=== PATIENT | male | born 1935 | race Caucasian/White ===

== ENCOUNTER → 2017-09-14 | Day surgery (SDC) | payer OTHER ==
[~2017-09-14] MED LIST: ALLOPURINOL300 M1 PO; PERCOCET 5-3251 EACH PO; VITAMIN D350000 UNIT PO; ZOFRAN4 M2 PO
--- NOTE | 2017-09-14 16:19 | Operative Report ---
Operative/Inv Procedure Report Surgery Date: 09/14/17 Name of Procedure: Port-A-Cath placement Pre-Operative Diagnosis: Colon cancer Post-Operative Diagnosis: Same Estimated Blood Loss: scant Surgeon/Dope Maintenance Worker: Shandra Cristobal MD Anesthesia: local monitored anesthesi Implants: Port-A-Cath (inserted in the chart) Complications: None Condition: Stable to recovery room Operative Indication: Patient is an 81-year-old man with colon cancer. Patient presents for a Port-A- Cath placement for chemotherapy. All risks benefits and alternatives explained to patient detail, and he expressed understanding and agreement to the same. Operative/Procedure Note Note: Patient was taken to the operating room and placed in supine position on the operating table. Both arms were tucked. Bilateral lower extremity SCDs were placed. Anesthesia was established by the anesthesia team. Bilateral neck, anterior chest wall, and shoulders were prepped and draped in the standard surgical fashion. Perioperative antibiotic was given. The timeout was carried out. The patient was placed in the Trendelenburg position. Topical analgesia was achieved with 10 mL of 1% lidocaine with epinephrine. The subclavian vein was punctured through subcutaneous stick. The guidewire was placed into the left subclavian vein and threaded to the superior vena cava easily. Its position was confirmed with fluoroscopy. Then a small pocket was created in the anterior left chest wall for the placement of the reservoir. [place] was secured in place with 2-0 PDS sutures. The sheath and dilator were placed under direct visualization with fluoroscopy scope the over the guidewire into the left subclavian vein. The guidewire and dilator were pulled out as a unit. The catheter was placed within their subclavian vein and advanced into the superior vena cava through the sheath. The sheath was pulled apart and removed. The keep of the catheter was positioned in the superior vena cava above the right atrium and its position was confirmed with fluoroscopy. The appropriate length of the catheter was cut and it was connected to the reservoir. The reservoir was flushed first with heparinized saline, then with heparin. The subcutaneous tissues were closed with interrupted 3-0 Vicryl sutures. The skin was closed with 4-0 Monocryl sutures. Steri-Strips and sterile dressing were applied. The sponge and instrument counts were correct in the end of procedure. Patient tolerated the procedure well, was wakened up and taken to recovery room in stable condition. Discharge Disposition: home Additional Comments: CXR to be done in PACU prior to discharge
--- NOTE | 2017-09-14 17:11 | RADIOLOGY REPORT ---
EXAMINATION: XR PORTABLE CHEST CLINICAL INFORMATION: Status post Port-A-Cath insertion. COMPARISON: Same day fluoroscopy exam. Chest x-ray 10/11/2015 TECHNIQUE: Portable frontal view of the chest was obtained. FINDINGS: A Port-A-Cath entering from a left subclavian approach is visualized with tip injecting just above the expected location of the cavoatrial junction. On this 80 degree portable film no direct evidence for a pneumothorax. There is persistent elevation of the right hemidiaphragm, stable compared to 2016. The cardiac mediastinal contours appear stable. No consolidation or effusion. IMPRESSION: No direct evidence for pneumothorax. Since post left Port-A-Cath insertion with catheter in good position.
--- NOTE | 2017-09-15 08:43 | RADIOLOGY REPORT ---
EXAMINATION:\H\ \N\XR CHEST CLINICAL INFORMATION: Port insertion in OR. COMPARISON: Chest x-ray 10/11/2015. TECHNIQUE: 4 intraoperative images of the chest were obtained. FINDINGS: The study demonstrates placement of a central venous catheter from the left chest, with the tip in the region of the cavoatrial junction. No pneumothorax is demonstrated. Fluoroscopy time: 0.7 minutes. IMPRESSION: 1. Intraoperative imaging during placement of a central venous catheter.
== END ==
LOC: STS 07:00
DX: C18.3 Malignant neoplasm of hepatic flexure (principal); M10.9 Gout, unspecified; M17.9 Osteoarthritis of knee, unspecified
CPT/HCPCS: 71045; C1788; J1644; J2250